=== PATIENT | female | born 1970 | race Caucasian/White ===

== ENCOUNTER 2023-01-18 08:00 | Day surgery (SDC) | payer BC ==
[~2023-01-18] VITALS: Ht 170.2 cm; Wt 81.6 kg
[~2023-01-18 08:00] MED LIST: ATORVASTATIN CA10 MG PO
[2023-01-18 10:45] VITALS: BP 121/74
== END 2023-01-18 11:10 | disposition home or self-care (01) | DRG 951 ==
LOC: ENDO 08:00
PROVIDERS: ATTEND Internal Medicine Gastroenterology
PROC: 0DBP8ZX Excision of Rectum, Via Natural or Artificial Opening Endoscopic, Diagnostic (ICD-10-PCS; principal; 2023-01-18)
DX: Z12.11 Encounter for screening for malignant neoplasm of colon (principal); K62.1 Rectal polyp; K64.8 Other hemorrhoids; E78.5 Hyperlipidemia, unspecified; Z80.0 Family history of malignant neoplasm of digestive organs